=== PATIENT | female | born 1945 ===

== ENCOUNTER 2023-03-06 14:27 | Emergency (ER) | payer MEDICARE, OTHER, SELFPAY ==
--- NOTE | ~2023-03-06 | CT_ITS ---
EXAM: CT scan of the head and cervical spine. INDICATION: Reason for Exam fall, pain TECHNIQUE: A noncontrast CT scan was performed from the skull base to the vertex. A noncontrast CT scan of the cervical spine was performed from the base of the skull through T1 at 2.5 mm and 1.25 mm collimation. Coronal and sagittal reformats were obtained at the acquisition workstation. This CT examination was performed using dose optimization techniques as appropriate, variously including the following: *Automated exposure control *Adjustment of mA and/or kV according to patient size (this includes techniques or standardized protocols for targeted exams where dose is matched to indication/reason for exam; i.e. extremities or head) *Use of iterative reconstruction technique DLP: 658 and 578 mGy-cm COMPARISON: None FINDINGS: Head: There is no evidence of acute intracranial hemorrhage or territorial infarction. Mistry-white matter differentiation is preserved. No abnormal mass effect or midline shift. No extra-axial fluid collections. No abnormal attenuation is demonstrated within the brain parenchyma. Hyperostosis frontalis interna The ventricles and sulcal spaces are proportional without hydrocephalus. Proportional prominence of the ventricles and sulcal spaces. No acute osseous or soft tissue abnormalities. The mastoid air cells and visualized portions of the paranasal sinuses are well aerated. Cervical Spine: The atlantooccipital and atlantoaxial articulations remain well aligned. Straightening of the normal cervical lordosis. Otherwise, there is anatomic alignment of the vertebral bodies and posterior elements. No evidence of acute fracture or subluxation. Mild spondylosis throughout.. There is no prevertebral soft tissue swelling. The thyroid gland and remaining cervical soft tissues are normal in appearance. The lung apices demonstrate no abnormalities. CT/CT cervical spine wo IV con IMPRESSION: No acute intracranial pathology. No acute fracture subluxation cervical spine.
[2023-03-06 14:34] VITALS: BP 148/71; BP 152/72; PULSE 65; PULSE 70; RESP 18; TEMP 37.1; O2SAT 96; O2SAT 97; BMI 32.6
[2023-03-06 15:53] LABS: MANUAL DIFF FLAG NO
[2023-03-06 15:54] LABS: Basophils Percent Auto 0.4 % (0-2); Eosinophils Absolute Auto 0.2 X10*3/uL (0.0-0.4); Eosinophils Percent Auto 1.5 % (0-4); Hematocrit 37.2 % (37.0-47.0); Hemoglobin 11.9 g/dl (12.0-16.0); Imm Gran Abs Auto 0.03 X10*3/uL (0.00-0.03); Imm Gran Pct Auto 0.3 % (0.0-0.4); Lymphocytes Absolute Auto 1.8 X10*3/uL (1.2-4.9); Lymphocytes Percent Auto 17.6 % (20-40); Mean Corpuscular Volume 90.5 fL (80.0-98.0); Mean Platelet Volume 10.8 fL (9.4-12.3); Monocytes Percent Auto 9.9 % (2-11); Neutrophils Absolute Auto 7.2 x10*3/uL (2.0-8.3); Neutrophils Percent Auto 70.3 % (45-73); Platelet Count 231 X10*3/uL (160-400); Red Blood Count 4.11 X10*6/uL (4.20-5.50); Red Cell Distribution Width 14.3 % (11.0-16.0); White Blood Count 10.2 X10*3/uL (4.8-10.8)
[2023-03-06 16:07] LABS: Alanine Aminotransferase 17 U/L (0-31); Alkaline Phosphatase 72 U/L (39-117); Anion Gap 16 (12-20); Aspartate Amino Transferase 19 U/L (5-31); Bilirubin Total 0.2 mg/dL (0.0-1.0); Blood Urea Nitrogen 23 mg/dL (9-16); Calcium 9.6 mg/dL (8.4-10.2); Carbon Dioxide 25 mmol/L (22-29); Chloride 105 mmol/L (96-108); Creatinine Clr Calc Pharmacy 52.7; Estimated Glomerular Filt Rate > 60; Glucose Random 99 mg/dL (60-115); Potassium 4.4 mmol/L (3.3-5.1); Sodium 142 mmol/L (135-145); Total Protein 7.1 g/dL (6.5-8.0)
[2023-03-06 16:40] VITALS: BP 170/75; PULSE 67
[2023-03-06 16:41] VITALS: BP 173/79; PULSE 68
[2023-03-06 16:44] VITALS: BP 164/77; PULSE 70
--- NOTE | 2023-03-06 17:37 | ED_ITS ---
HPI - Fall General Chief Complaint: Fall Stated Complaint: HIT HEAD,DIZZY S/P SLIP/FALL @MALL,-LOC PER EMS Time Seen by Provider: 03/06/23 16:01 Source: patient Mode of arrival: EMS Limitations: no limitations History of Present Illness HPI Narrative: Is a 77-year-old female who presents emergency department her daughter via EMS for evaluation after a mechanical fall. She reports that she was at the mall, using her wheeled walker when she was getting tired. She sat on the cm her daughter was pushing her through the store. The wheeled walker got caught on the floor transition to strip, resulting in her falling backwards striking her head on to the ground. There was no loss consciousness, she denies the use of anticoagulants. Upon presentation to the emergency department she initially reported some dizziness that started after the fall which has since resolved. She denies headache, neck pain, vision changes, dizziness, lightheadedness, chest pain, shortness of breath, numbness or tingling of the extremities, generalized weakness. She is overall feeling well and requesting to go home at this time. Related Data Home Medications Medication Instructions Recorded Confirmed aspirin 325 mg tablet,delayed 325 mg PO BID 04/09/22 release citalopram 20 mg tablet 20 mg PO DAILY 04/09/22 clobetasol 0.05 % topical cream g topical BID 04/09/22 losartan 100 mg tablet 100 mg PO DAILY 04/09/22 metoprolol tartrate 50 mg tablet 50 mg PO BID 04/09/22 simvastatin 40 mg tablet 40 mg PO BEDTIME 04/09/22 Previous Rx's Medication Instructions Recorded azithromycin 250 mg tablet See Rx Instructions PO .COMPLEX #6 04/09/22 tabs meloxicam 15 mg tablet 15 mg PO DAILY #14 tabs 04/09/22 Allergies Allergy/AdvReac Type Severity Reaction Status Date / Time seafood Allergy Vomiting Verified 03/06/23 14:34 Review of Systems 2 Review of Systems: Yes all other systems are reviewed and are negative [facility] Past Medical History Attestation statement: The following information was validated with the patient. Source: old records reviewed Social History Social History Advance Directives: Yes Advance Directives Information Provided: No Advance Directives on File: No Physical Exam 2 Vital Signs: Vital Signs: Last Vital Signs Temp 98.7 F 03/06/23 14:34 Pulse 70 03/06/23 16:44 Resp 18 03/06/23 14:34 BP 164/77 H 03/06/23 16:44 Pulse Ox 97 03/06/23 14:34 O2 Del Method Room Air 03/06/23 14:34 BMI result Body Mass Index 32.6 Appearance: Alert.?Oriented to person, place and time. No acute distress.?Normal affect. Head: Normocephalic, atraumatic Eyes: Pupils equal, round and reactive to light.? EOMI. No nystagmus. No raccoon eyes ENT: Pharynx normal.??TM normal bilaterally. Neck: Normal inspection.? Neck supple.??No septal hematoma. CVS: Heart sounds normal. Normal heart rate and rhythm.? Pulses normal.?? Respiratory: No respiratory distress.? Lung sounds clear to auscultation bilaterally?? Abdomen: Soft and non-tender. Normoactive bowel sounds. ? Skin: Skin warm and dry.? Normal skin color.? Extremities: No lower extremity edema.? No calf ttp? Neuro: Moves all extremities spontaneously. Sensation intact bilaterally. CN II- XII intact. No focal neuro deficits. Ambulates with normal steady gait. Medical Decision Making Medical Decision Making [facility] Narrative: Patient is a 77-year-old female with past medical history of hypertension, hyperlipidemia presenting to emergency department for evaluation after mechanical fall with head strike and no loss of consciousness. At the time my examination she is overall well-appearing, nontoxic, afebrile, without focal neurological deficits, physical examination is benign. Prior to my assumption of care nursing staff had obtained protocol abscess due to her initial report of dizziness which has since resolved, CBC and CMP are overall unremarkable aside from mildly elevated BUN at 23, patient does states that she does not drink enough water throughout the day, I encouraged her to increase fluid intake. Obtain CT of the head and cervical spine which is without evidence of acute intracranial pathology nor traumatic fracture/subluxation. She is ambulatory with a steady gait. At this time she is stable for discharge, we discussed head injury precautions, worrisome signs symptoms that would warrant re-evaluation emergency department. Advised outpatient follow-up primary care provider next week. All questions answered. Stable for discharge. Differential Diagnosis Differential Diagnoses: The differential diagnosis associated with the presentation includes (As noted above) Lab Data [facility] Lab Attestation statement: I reviewed the patient's lab results. (As noted above) 03/06/23 15:49 03/06/23 15:49 Labs: Lab Results 03/06/23 Range/Units 15:49 WBC 10.2 (4.8-10.8) X10*3/uL RBC 4.11 L (4.20-5.50) X10*6/uL Hgb 11.9 L (12.0-16.0) g/dl Hct 37.2 (37.0-47.0) % MCV 90.5 (80.0-98.0) fL MCH 29.0 (27.0-33.0) pg MCHC 32.0 (31.0-35.0) g/dl RDW 14.3 (11.0-16.0) % Plt Count 231 (160-400) X10*3/uL MPV 10.8 (9.4-12.3) fL Immature Gran % (Auto) 0.3 (0.0-0.4) % Neut % (Auto) 70.3 (45-73) % Lymph % (Auto) 17.6 L (20-40) % Millard % (Auto) 9.9 (2-11) % Eos % (Auto) 1.5 (0-4) % Baso % (Auto) 0.4 (0-2) % Lymph # (Auto) 1.8 (1.2-4.9) X10*3/uL Millard # (Auto) 1.0 (0.1-1.2) X10*3/uL Eos # (Auto) 0.2 (0.0-0.4) X10*3/uL Baso # (Auto) 0.0 (0.0-0.2) X10*3/uL Abs Immat Gran (auto) 0.03 (0.00-0.03) X10*3/uL Absolute Neuts (auto) 7.2 (2.0-8.3) x10*3/uL Absolute Nucleated RBC 0.000 (0.0-0.012) X10*3/uL Nucleated RBC % (auto) 0.0 (0.0-0.2) /100WBC Sodium 142 (135-145) mmol/L Potassium 4.4 (3.3-5.1) mmol/L Chloride 105 (96-108) mmol/L Carbon Dioxide 25 (22-29) mmol/L Anion Gap 16 (12-20) BUN 23 H (9-16) mg/dL Creatinine 0.80 (0.5-1.4) mg/dL Estim Creat Clear Calc 52.7 Estimated GFR > 60 Random Glucose 99 (60-115) mg/dL Calcium 9.6 (8.4-10.2) mg/dL Total Bilirubin 0.2 (0.0-1.0) mg/dL AST 19 (5-31) U/L ALT 17 (0-31) U/L Alkaline Phosphatase 72 (39-117) U/L Total Protein 7.1 (6.5-8.0) g/dL Albumin 4.0 (3.5-5.0) g/dL Independent Interpretation I performed an independent interpretation of an: CT Scan Radiology Impression Discussion of test interpretation with radiology: I have reviewed the radiologist's reading. Radiologist Impression: CT/CT head/brain wo IV con IMPRESSION: No acute intracranial pathology. No acute fracture subluxation cervical spine. Independent Historian Clinical information obtained from an independent historian. History obtained from or confirmed by: EMS and Other (Daughter present at bedside who confirms history) Prescription Management I considered prescription management with: Pain Medication (Acetaminophen) Discharge Plan Discharge Clinical Impression: Acute head injury without loss of consciousness Patient Disposition: Home, Self-Care Instructions: Head Injury (ED), Concussion (ED) Additional Instructions: As discussed, the CT scan of your head and neck today were normal which year history. takes Tylenol as needed for pain. Please review the discharge instructions surrounding concussion which may result an head injury. Contact your primary care provider to arrange for follow-up visit. You may return back to emergency department any new or worsening symptoms or concerns. Prescriptions: No Action losartan 100 mg tablet 100 mg PO DAILY metoprolol tartrate 50 mg tablet 50 mg PO BID citalopram 20 mg tablet 20 mg PO DAILY simvastatin 40 mg tablet 40 mg PO BEDTIME aspirin 325 mg tablet,delayed release (DR/EC) 325 mg PO BID clobetasol 0.05 % cream topical BID azithromycin 250 mg tablet See Rx Instructions PO .COMPLEX Qty: 6 0RF Rx Instructions: take 500 mg today (day 1), then 250 mg for 4 days (days 2-5) PO meloxicam 15 mg tablet 15 mg PO DAILY Qty: 14 0RF Referrals: Mily Vasquez PA [Primary Care Provider] -
== END 2023-03-06 18:26 | disposition home or self-care (01) ==
PROVIDERS: Emergency Provider Internal Medicine; PCP Physician Assistant
DX: S09.90XA Unspecified injury of head, initial encounter (principal); R51.9 Headache, unspecified; M54.2 Cervicalgia; W01.10XA Fall on same level from slipping, tripping and stumbling with subsequent striking against unspecified object, initial encounter; Y93.9 Activity, unspecified; Y92.59 Other trade areas as the place of occurrence of the external cause; Y99.9 Unspecified external cause status
CPT/HCPCS: 36415; 70450; 72125; 80053; 85025; 99283

== ENCOUNTER 2023-10-02 13:56 | Emergency (ER) | payer MEDICARE, OTHER, SELFPAY ==
[2023-10-02] VITALS (10 sets, daily range): BP systolic 116–154; BP diastolic 55–76; PULSE 74–93; RESP 16; TEMP 36.8–37.3; O2SAT 89–94; BMI 36.0
--- NOTE | 2023-10-02 | ECG_ITS ---
Test Reason : WEAKNESS, N/V Blood Pressure : / mmHG Vent. Rate : 088 BPM Atrial Rate : 099 BPM P-R Int : 134 ms QRS Dur : 086 ms QT Int : 348 ms P-R-T Axes : 023 000 032 degrees QTc Int : 421 ms Sinus rhythm with Premature supraventricular complexes Otherwise normal ECG No previous ECGs available Referred By: Generic ED Physician Electronically Signed By:Abner Arora
--- NOTE | ~2023-10-02 | CT_ITS ---
EXAMINATION: CT ANGIOGRAM OF THE CHEST WITH AND WITHOUT CONTRAST (CT PULMONARY ANGIOGRAM FOR PE) CLINICAL INFORMATION: Reason for Exam low 02 saturation. PE? COMPARISON: None. TECHNIQUE: Prior to contrast administration, noncontrast localization images were obtained. Subsequently, multidetector volumetric imaging was performed from the thoracic inlet to below the diaphragms following the administration of 65 mL Omnipaque 350 intravenous contrast. No contrast reaction reported Sagittal, coronal, and MIP oblique sagittal reformatted images were obtained on the CT workstation, uploaded to PACS, and reviewed. This CT examination was performed using dose optimization techniques as appropriate, variously including the following: *Automated exposure control *Adjustment of mA and/or kV according to patient size (this includes techniques or standardized protocols for targeted exams where dose is matched to indication/reason for exam; i.e. extremities or head) *Use of iterative reconstruction technique Total exam dose-length product 345 mGy-cm FINDINGS: QUALITY OF STUDY/CONTRAST BOLUS: Satisfactory. PULMONARY ARTERIES: No pulmonary emboli. THORACIC AORTA: No aneurysm. LUNG: There is minimal dependent atelectatic change at the lung bases. The lungs are otherwise clear. PLEURA: No pleural effusion or pneumothorax. MEDIASTINUM: Normal heart size. No pericardial effusion. No hilar or mediastinal lymphadenopathy. No evidence of septal bowing or right heart strain. CORONARY ARTERY CALCIFICATION: Moderate. CHEST WALL/AXILLA: No axillary or internal mammary lymphadenopathy. OSSEOUS STRUCTURES: There is mild diffuse thoracolumbar disc degenerative change. UPPER ABDOMEN: Unremarkable. No reflux of contrast into the hepatic veins to suggest elevated right heart pressures. CT/CT angio chest PE protocol IMPRESSION: 1. No pulmonary embolus is seen. 2. There is minimal dependent atelectatic change at the lung bases. The lungs are otherwise clear. VTE: negative.
--- NOTE | ~2023-10-02 | CT_ITS ---
EXAMINATION: CT HEAD WITHOUT CONTRAST CLINICAL INFORMATION: Weakness and nausea COMPARISON: 03/06/2023 TECHNIQUE: Contiguous axial imaging was performed from the skull base to vertex without intravenous administration of contrast. This CT examination was performed using dose optimization techniques as appropriate, variously including the following: *Automated exposure control *Adjustment of mA and/or kV according to patient size (this includes techniques or standardized protocols for targeted exams where dose is matched to indication/reason for exam; i.e. extremities or head) *Use of iterative reconstruction technique DLP: 686 mGy-cm FINDINGS: There is no evidence of acute intracranial hemorrhage or territorial infarction. No abnormal mass effect or midline shift is seen. Mistry to white matter differentiation is well preserved. No extra-axial fluid collections are identified. The ventricles are normal in size. There is no abnormal attenuation within the brain parenchyma. The osseous structures and soft tissues are notable for hyperostosis from talus interna. The mastoid air cells and visualized portions of the paranasal sinuses are well-aerated. CT/CT head/brain wo IV con IMPRESSION: No acute intracranial pathology.
--- NOTE | ~2023-10-02 | XR_ITS ---
EXAMINATION: XR CHEST CLINICAL INFORMATION: Weakness COMPARISON: None available. TECHNIQUE: Frontal view of the chest was obtained. FINDINGS: No significant abnormality is noted involving the heart, lungs, mediastinum, bony thorax or soft tissues. XR/XR chest 1V IMPRESSION: Unremarkable examination.
--- NOTE | 2023-10-02 14:15 | ED_ITS ---
HPI - General Adult General Chief complaint: Weakness Stated complaint: VOMITING SINCE LAST NIGHT DIFFICULTY AMBULATING Time Seen by Provider: 10/02/23 14:15 Source: patient and EMS Mode of arrival: EMS Limitations: no limitations History of Present Illness ED Provider: Leana Paz PA-C HPI narrative: Patient is a 77 year old assigned female at with a history of HLD presenting to the emergency department today with nausea, vomiting, and weakness. Patient states that since last night she has nausea, vomiting, and weakness. Patient denies any dizziness, lightheadedness, abdominal pain, fever, chills, blurry vision, double vision, loss of vision, chest pain, difficulty breathing, shortness of breath, back pain, night sweats, pain with urination, increased urinary frequency, increased urinary urgency, blood in her urine or stool, syncope or a near syncopal episode, recent trauma or falls, bowel incontinence, bladder incontinence, bowel retention, bladder retention, or any other complaints at this time. Onset (ago): day(s) Severity: mild Severity scale (1-10): 3 Relieving factors: none Exacerbating factors: none Associated symptoms: nausea/vomiting Treatments prior to arrival: none Related Data Home Medications ?Medication ?Instructions ?Recorded ?Confirmed aspirin 325 mg tablet,delayed 325 mg PO BID 04/09/22 release citalopram 20 mg tablet 20 mg PO DAILY 04/09/22 clobetasol 0.05 % topical cream g topical BID 04/09/22 losartan 100 mg tablet 100 mg PO DAILY 04/09/22 metoprolol tartrate 50 mg tablet 50 mg PO BID 04/09/22 simvastatin 40 mg tablet 40 mg PO BEDTIME 04/09/22 Previous Rx's ?Medication ?Instructions ?Recorded azithromycin 250 mg tablet See Rx Instructions PO .COMPLEX #6 04/09/22 tabs meloxicam 15 mg tablet 15 mg PO DAILY #14 tabs 04/09/22 Allergies Allergy/AdvReac Type Severity Reaction Status Date / Time seafood Allergy Vomiting Verified 10/02/23 14:09 Review of Systems 2 Constitutional: Constitutional: Reports no additional constitutional complaints, Denies chills, Denies fever(s), Denies night sweats and Reports weakness Eyes: Eyes: Reports no additional eye complaints, Denies blurry vision, Denies change in vision, Denies diplopia, Denies eye discharge, Denies loss of vision and Denies eye pain ENT: Denies dizziness Cardiovascular: Cardiovascular: Reports no additional cardiovascular complaints, Denies chest pain, Denies lightheadedness, Denies Loss of Consciousness and Denies dyspnea Respiratory: Respiratory: Reports no additional respiratory complaints and Denies dyspnea Gastrointestinal: Gastrointestinal: Reports no additional gastrointestinal complaints, Denies abdominal pain, Denies melena, Denies hematochezia, Denies change in bowel habits, Denies change in stool character, Reports nausea and Reports vomiting Genitourinary: Genitourinary: Denies hematuria, Denies urinary frequency, Denies dysuria, Denies urinary incontinence, Denies urinary hesitancy and Denies urinary urgency Musculoskeletal: Musculoskeletal: Reports no additional musculoskeletal complaints, Denies numbness and Denies tingling Neurologic: Denies dizziness, Denies loss of vision, Denies numbness, Denies tingling and Reports weakness Psychiatric: Psychiatric: Reports no additional psychiatric complaints Endocrine: Endocrine: Reports no additional endocrine complaints Hematologic/Lymphatic: Hematologic/Lymphatic: Reports no additional hematologic/lymphatic complaints Allergic/Immunologic: Allergic/Immunologic: Reports no additional allergic/immunologic complaints PMFSH Past Medical History Attestation statement: The following information was validated with the patient. (all information was validated with the patient's daughter) Source: old records reviewed, obtained from family (patient's daughter provided additional history and confirmed the history provided by the patient.) and nursing notes reviewed Social History Social History Smoked in Last 30 Days: No Use of substances other than those prescribed or required for medical reasons: No Advance Directives: Yes Advance Directives on File: Yes Advance Directives Date on File: 10/02/23 Do you have a plan to hurt others: No Plan Physical Exam ED Vital Signs: Vital Signs - 24 hr 10/02/23 14:11 Temperature 98.9 F Pulse Rate 83 Respiratory Rate 16 Blood Pressure 145/64 H Pulse Oximetry 94 Oxygen Delivery Method Room Air BMI result Body Mass Index 36.0 Const General: cooperative, no acute distress, alert and awake Nutritional Appearance: well nourished Orientation/consciousness: patient oriented x3 Limitations: no limitations HENMT Head: Yes normal to inspection and Yes atraumatic Ears: hearing grossly normal bilaterally and external ears normal General nose exam: Normal external nose present, no nasal discharge noted and no epistaxis Face and sinus: Yes normal facial exam, No abrasion and No laceration Mouth: Normal oral and palatal mucosa present, no drooling and no muffled voice Eyes General: appearance normal, both eyes and all related structures Periorbital: periorbital findings normal Eyelids: Yes eyelids normal Conjunctivae: conjunctivae normal Pupils: Equal, round and reactive pupils present EOM: EOMs intact bilaterally Neck Neck: Yes normal visual inspection, Yes full ROM and Yes no lymphadenopathy Chest Chest palpation & inspection: normal inspection of the chest Resp Effort & Inspection: normal respiratory effort and able to speak in complete sentences GI Inspection: Yes normal to inspection Neuro General: patient oriented x3 and moves all extremities Cranial nerves: Yes Equal, round and reactive pupils present Cognition (Neuro): normal cognition Motor exam (neuro): 5/5 motor strength present throughout Sensory Exam: Normal double simultaneous stimulation for sensation Coordination: [id number] test normal Extrem General: Yes normal to inspection, Yes full ROM and Yes capillary refill normal Psych Appearance: grossly normal Mental Status: mental status grossly normal Affect: normal affect Attitude: cooperative Thought process: Normal thought process present Thought content: Normal thought content present Insight: Good insight present (Psych) Medications Administered Generic Name Dose Route Start Last Admin Trade Name Freq PRN Reason Stop Dose Admin Sodium Chloride 1,000 mls @ 999 mls/hr 10/02/23 15:30 10/02/23 15:38 Ns IV 10/02/23 16:30 999 mls/hr .Q1H1M KENIA Administration Discontinued Medications Generic Name Dose Route Start Last Admin Trade Name Freq PRN Reason Stop Dose Admin Ondansetron HCl 4 mg 10/02/23 15:27 10/02/23 15:38 Ondansetron Hcl 4 Mg/2 Ml Vial IVPUSH 10/02/23 15:28 4 mg ONCE ONE Administration Medical Decision Making Medical Decision Making MDM Narrative: Patient is a 77 year old assigned female at with a history of HLD presenting to the emergency department today with weakness, nausea, and vomiting. Patient's physical exam was unremarkable. Patient's blood work showed an elevated WBC count of 12.7 but was otherwise unremarkable. Patient's urine is pending. Patient's EKG was unremarkable. Patient's chest x-ray is pending. I explained my physical exam findings as well as all test results to the patient and the patient's daughter. I answered all questions asked by the patient and the patient's daughter. Patient was given IV fluids. Patient signed out to MADELINE Barcenas with disposition pending CXR and UA interpretations. Differential Diagnosis Differential Diagnoses: The differential diagnosis associated with the presentation includes Weakness UTI Admission/Observation Consideration of admission/observation: Escalation of care including admission/observation considered Patient's disposition will be determined after UA and CXR are interpreted. Lab Data [facility] Lab Attestation statement: I reviewed the patient's lab results. My interpretation of these results are in the MDM Rationale portion of this note. 10/02/23 14:41 10/02/23 14:41 Labs: Lab Results 10/02/23 Range/Units 14:41 WBC 12.7 H (4.8-10.8) X10*3/uL RBC 4.21 (4.20-5.50) X10*6/uL Hgb 12.2 (12.0-16.0) g/dl Hct 37.6 (37.0-47.0) % MCV 89.3 (80.0-98.0) fL MCH 29.0 (27.0-33.0) pg MCHC 32.4 (31.0-35.0) g/dl RDW 14.2 (11.0-16.0) % Plt Count 234 (160-400) X10*3/uL MPV 10.6 (9.4-12.3) fL Immature Gran % (Auto) 0.6 H (0.0-0.4) % Neut % (Auto) 87.7 H (45-73) % Lymph % (Auto) 3.8 L (20-40) % Grant % (Auto) 6.4 (2-11) % Eos % (Auto) 1.3 (0-4) % Baso % (Auto) 0.2 (0-2) % Lymph # (Auto) 0.5 L (1.2-4.9) X10*3/uL Grant # (Auto) 0.8 (0.1-1.2) X10*3/uL Eos # (Auto) 0.2 (0.0-0.4) X10*3/uL Baso # (Auto) 0.0 (0.0-0.2) X10*3/uL Abs Immat Gran (auto) 0.08 H (0.00-0.03) X10*3/uL Absolute Neuts (auto) 11.1 H (2.0-8.3) x10*3/uL Absolute Nucleated RBC 0.000 (0.0-0.012) X10*3/uL Nucleated RBC % (auto) 0.0 (0.0-0.2) /100WBC Sodium 139 (135-145) mmol/L Potassium 3.8 (3.3-5.1) mmol/L Chloride 103 (96-108) mmol/L Carbon Dioxide 26 (22-29) mmol/L Anion Gap 14 (12-20) BUN 16 (9-16) mg/dL Creatinine 0.76 (0.5-1.4) mg/dL Estim Creat Clear Calc 56.0 Estimated GFR > 60 Random Glucose 205 H (60-115) mg/dL Calcium 8.9 D (8.4-10.2) mg/dL Total Bilirubin 0.4 (0.0-1.0) mg/dL AST 15 (5-31) U/L ALT 13 (0-31) U/L Alkaline Phosphatase 82 (39-117) U/L Troponin I High Sens 2.9 (<3.5-17.0) ng/L B-Natriuretic Peptide 57 (<100) pg/mL Total Protein 6.7 (6.5-8.0) g/dL Albumin 3.7 (3.5-5.0) g/dL Lipase 31 (8-78) U/L Influenza Type A (PCR) NEGATIVE (Negative) Influenza Type B (PCR) NEGATIVE (Negative) RSV RNA Qual (PCR) NEGATIVE (Negative) SARS-CoV-2 RNA (RT-PCR) NEGATIVE (Negative) Independent Interpretation I performed an independent interpretation of an: EKG Interpretation: Vent. Rate: 088 BPM Atrial Rate: 099 BPM P-R Int: 134 ms QRS Dur: 086 ms QT Int: 348 ms P-R-T Axes: 023 000 032 degrees QTc Int: 421 ms Sinus rhythm with Premature supraventricular complexes Otherwise normal ECG No previous ECGs available DD/ 1416 Independent Historian Clinical information obtained from an independent historian. History obtained from or confirmed by: Other (patient's daughter provided additional history and confirmed the history provided by the patient.) Discharge Plan Discharge Clinical Impression: Weakness Patient Disposition: Still a Patient Prescriptions: No Action losartan 100 mg tablet 100 mg PO DAILY metoprolol tartrate 50 mg tablet 50 mg PO BID citalopram 20 mg tablet 20 mg PO DAILY simvastatin 40 mg tablet 40 mg PO BEDTIME aspirin 325 mg tablet,delayed release (DR/EC) 325 mg PO BID clobetasol 0.05 % cream topical BID azithromycin 250 mg tablet See Rx Instructions PO .COMPLEX Qty: 6 0RF Rx Instructions: take 500 mg today (day 1), then 250 mg for 4 days (days 2-5) PO meloxicam 15 mg tablet 15 mg PO DAILY Qty: 14 0RF Print Language: Hungarian
--- NOTE | 2023-10-02 14:39 | PC.NURSE ---
a&ox4. vss and up to date. nsr on the night monitor. pt presents to the ED by ambulance from home d/t n/v x last night. pt's daughter noticed pt had an increase in weakness/ambulating at home this am. per pt's daughter - pt uses a walker baseline but was unable to ambulate prior to arrival. pt denies abd pain/blood in vomit/stool. pt really has no complaints aside from being tired. no sob/wob noted. respirations even and unlabored. ekg performed by tech. labs obtained/sent to lab. plan of care ongoing. call schumacher placed within reach.
[2023-10-02 14:45] LABS: Basophils Percent Auto 0.2 % (0-2); Eosinophils Absolute Auto 0.2 X10*3/uL (0.0-0.4); Eosinophils Percent Auto 1.3 % (0-4); Hematocrit 37.6 % (37.0-47.0); Hemoglobin 12.2 g/dl (12.0-16.0); Imm Gran Abs Auto 0.08 X10*3/uL (0.00-0.03); Imm Gran Pct Auto 0.6 % (0.0-0.4); Lymphocytes Absolute Auto 0.5 X10*3/uL (1.2-4.9); Lymphocytes Percent Auto 3.8 % (20-40); MANUAL DIFF FLAG NO; Mean Corpuscular HGB Conc 32.4 g/dl (31.0-35.0); Mean Corpuscular Volume 89.3 fL (80.0-98.0); Mean Platelet Volume 10.6 fL (9.4-12.3); Monocytes Absolute Auto 0.8 X10*3/uL (0.1-1.2); Monocytes Percent Auto 6.4 % (2-11); Neutrophils Absolute Auto 11.1 x10*3/uL (2.0-8.3); Neutrophils Percent Auto 87.7 % (45-73); Platelet Count 234 X10*3/uL (160-400); Red Blood Count 4.21 X10*6/uL (4.20-5.50); Red Cell Distribution Width 14.2 % (11.0-16.0); White Blood Count 12.7 X10*3/uL (4.8-10.8)
[2023-10-02 15:03] LABS: Alanine Aminotransferase 13 U/L (0-31); Albumin Level 3.7 g/dL (3.5-5.0); Alkaline Phosphatase 82 U/L (39-117); Anion Gap 14 (12-20); Aspartate Amino Transferase 15 U/L (5-31); Bilirubin Total 0.4 mg/dL (0.0-1.0); Blood Urea Nitrogen 16 mg/dL (9-16); Calcium 8.9 mg/dL (8.4-10.2); Carbon Dioxide 26 mmol/L (22-29); Chloride 103 mmol/L (96-108); Estimated Glomerular Filt Rate > 60; Glucose Random 205 mg/dL (60-115); Lipase 31 U/L (8-78); Potassium 3.8 mmol/L (3.3-5.1); Sodium 139 mmol/L (135-145); Total Protein 6.7 g/dL (6.5-8.0)
[2023-10-02 15:08] LABS: B Type Natriuretic Peptide 57 pg/mL (<100)
[2023-10-02 15:10] LABS: Troponin-I High Sensitivity 2.9 ng/L (<3.5-17.0)
[2023-10-02 15:25] LABS: Influenza A PCR NEGATIVE (Negative); Influenza B PCR NEGATIVE (Negative); Resp Syncy Virus RNA Qual PCR NEGATIVE (Negative); SARS COV2 PCR INHOUSE NEGATIVE (Negative)
[2023-10-02] MEDS: ondansetron HCL 4 MG/2 ML VIAL IVPUSH (15:38)
[2023-10-02] MEDS: 0.9 % Sodium Chloride 1,000 ML 999 ML IV (15:38)
--- NOTE | 2023-10-02 15:44 | PC.NURSE ---
IVF/medication administered per provider order. effectiveness pending.
--- NOTE | 2023-10-02 18:13 | PC.NURSE ---
pt attempted to urinate on bedpan - inadequate amount. bladder scan performed - 141mL displayed in bladder scan. provider notified/aware. per provider order - straight catheterization performed to obtain urine sample. UA obtained/sent to lab. plan of care ongoing.
[2023-10-02 18:24] LABS: Appearance Urine Clear; Color Urine Yellow; Glucose Urine UA Negative (Negative); Leukocyte Esterase Urine Moderate (2+) (Negative); Nitrite Urine Negative (Negative); UMIC TRIGGER UACC YES; Urine Blood Negative (Negative); Urine Ketones Negative (Negative); Urine Protein 100 (2+) mg/dL (Neg-Trace)
[2023-10-02] MEDS: Acetaminophen 325 MG TABLET 975 MG PO (18:27)
--- NOTE | 2023-10-02 18:29 | PC.NURSE ---
pt c/o VEGA - pt medicated per provider order. effectiveness pending.
[2023-10-02 18:36] LABS: Bacteria Urine None Seen (None Seen); RBC Urine 0-2 /HPF (0-2); Squamous Epithelial Cell Urine 0-2 /HPF (0-2); UACC Culture Trigger YES; WBC Urine >50 /HPF (0-5)
--- NOTE | 2023-10-02 19:38 | PC.NURSE ---
This RN assumed pt care @ 1900. Pt ca&ox3, no signs of distress. Pt resting comfortably in bed, watching tv Daughter at bedside. Vitals stable Daughter requested and given test results Plan of care ongoing
--- NOTE | 2023-10-02 20:07 | PC.NURSE ---
Pt requested and assisted to restroom with walker. Daughter in restroom with pt. Plan of care ongoing.
--- NOTE | 2023-10-02 21:10 | PC.NURSE ---
Pt back from CT Plan of care ongoing.
--- NOTE | 2023-10-02 22:59 | PC.NURSE ---
Pt back from cCT daughter at bedside. plan of care ongoing.
[2023-10-02] MEDS: iohexoL 350 MG/ML 100 ML INFUS..BTL 65 ML IV (23:01)
--- NOTE | 2023-10-02 23:26 | MHC.EDTECH ---
This tech took over care of patient at 2300,patient ambulated with her daughter to the bathroom with a walker and steady gait. Hourly rounds and vitals completed,call schumacher in reach
--- NOTE | 2023-10-03 01:36 | MHC.EDTECH ---
Patient was given a ham sandwich,and a can of diet darrion tamara per request.
[2023-10-03] MEDS: 0.9 % Sodium Chloride 500 ML IV (02:13)
--- NOTE | 2023-10-03 02:15 | PC.NURSE ---
Pt with provider and hospitalist new orders rec'd Pt medicated per mar. Daughter at bedside. Plan of care ongoing.
[2023-10-03 02:21] VITALS: BP 136/70; PULSE 78; RESP 16; TEMP 37.1; O2SAT 93
[2023-10-03 03:04] VITALS: BP 136/70; PULSE 78; RESP 16; TEMP 37.1; O2SAT 93
== END 2023-10-03 03:08 | disposition home or self-care (01) ==
PROVIDERS: Physician Assistant Medical; Emergency Provider Student in an Organized Health Care Education/Training Program
DX: R53.1 Weakness (principal); R11.2 Nausea with vomiting, unspecified; Z03.818 Encounter for observation for suspected exposure to other biological agents ruled out
CPT/HCPCS: 0241U; 36415; 51701; 70450; 71045; 71275; 80053; 81001; 83690; 83880; 84484; 85025; 87086; 93005; 96361; 96374; 99285; J2405; Q9967

== ENCOUNTER → 2023-10-02 14:16 | Outpatient (BNV) | payer MEDICARE, OTHER, SELFPAY | PROVIDERS: Emergency Provider Student in an Organized Health Care Education/Training Program; Visit Provider Internal Medicine Cardiovascular Disease | DX: I49.1 Atrial premature depolarization (principal) | CPT/HCPCS: 93010 ==